=== PATIENT | male | born 1995 | race African-American/Black ===

== ENCOUNTER 2020-06-29 08:42 | Emergency (ER) | payer SELFPAY ==
[~2020-06-29] VITALS: Ht 167.6 cm; Wt 60.0 kg
[2020-06-29 09:38] LABS: BASOPHILS % 0.6 % (0.0-2.0); EOSINOPHILS % 0.1 % (0.0-5.0); HEMATOCRIT. 46.3 % (42.0-52.0); HEMOGLOBIN. 15.5 g/dL (14.0-18.0); INR 1.1; LYMPHOCYTES % 17.2 % (20.0-50.0); MEAN CORPUSCULAR HEMOGLOBIN 28.7 pg (28.0-32.0); MEAN CORPUSCULAR VOLUME 85.6 fL (80.0-94.0); MEAN PLATELET VOLUME 7.9 fl (7.4-10.4); MONOCYTES % 6.7 % (2.0-8.0); NEUTROPHILS % 75.4 % (40.0-76.0); PLATELET 473 x1000/uL (130-400); PROTHROMBIN TIME 11.9 sec (9.6-11.0); RED CELL DISTRIBUTION WIDTH 14.4 % (11.6-14.6)
[2020-06-29 09:44] LABS: CHLORIDE 104 mEq/L (98-107)
[2020-06-29 10:45] VITALS: BP 156/72
== END 2020-06-29 10:50 | disposition home or self-care (01) ==
LOC: ER 08:42 → EDSEX 08:42 → ER 10:50
DX: R10.84 Generalized abdominal pain (principal); R03.0 Elevated blood-pressure reading, without diagnosis of hypertension; E87.6 Hypokalemia
CPT/HCPCS: 36415; 80053; 85025; 99283

== ENCOUNTER 2020-06-29 12:48 | Emergency (ER) | payer SELFPAY ==
[~2020-06-29] VITALS: Ht 160 cm; Wt 49.0 kg
[2020-06-29 12:51] VITALS: BP 142/78
[2020-06-29] MEDS ORDERED: LORAZEPAM 0.5MG TABLET PO ONE (13:30)
== END 2020-06-29 15:45 | disposition home or self-care (01) ==
LOC: ER 12:48
DX: F41.0 Panic disorder [episodic paroxysmal anxiety] (principal); R03.0 Elevated blood-pressure reading, without diagnosis of hypertension; F15.10 Other stimulant abuse, uncomplicated; Z71.51 Drug abuse counseling and surveillance of drug abuser
CPT/HCPCS: 93005; 99283